=== PATIENT | female | born 1960 ===

== ENCOUNTER 2016-10-10 08:50 | Day surgery (SDC) | payer MEDICARE, MEDICAID ==
[2016-10-04 09:31] VITALS: BMI 23.8
[2016-10-10] MEDS ORDERED: Propofol 10 mg/ml Inj (20 ML) ONE (09:30)
[2016-10-10] MEDS ORDERED: Midazolam 2 MG/2 ML VIAL ONE (09:30)
[2016-10-10] MEDS ORDERED: Atropine 0.4 mg/ml Inj (1 mL) ONE (09:32)
[2016-10-10] MEDS ORDERED: ceFAZolin IV 1 gm in Dextrose 1 GM/50 ML BAG IVPB ONE (09:53)
[2016-10-10] MEDS ORDERED: Bupivacaine HCl 0.25% PF (10 ml) Inj ONE (09:54)
[2016-10-10] MEDS ORDERED: Lactated Ringer's 1,000 ML IV ONE (09:55)
[2016-10-10] MEDS ORDERED: Lidocaine 1% Inj (20ml) ONE (10:08)
[2016-10-10] MEDS ORDERED: HYDROmorphone 0.5 mg/0.5 ml ISec IVP PRN (10:48)
--- NOTE | 2016-10-10 10:54 | PCM.SURG1 ---
Surgeon's Initial Post Op Note - Surgeon's Notes Surgeon: Dr. Cano Corporate Safety Director: PGY1, Nancy [id number] Type of Anesthesia: General IV Pre-Operative Diagnosis: Cyst of right breast and left side of neck Operative Findings: small encapusaled cysts Post-Operative Diagnosis: Same Operation Performed: cyst excision of right breast and left side of neck Specimen/Specimens Removed: 1: Mass of neck. 2. superficial cyst of right breast Estimated Blood Loss: EBL {In ML}: 5 Drains Used: No Drains Post-Op Condition: Good Date of Surgery/Procedure: 10/10/16 Time of Surgery/Procedure: 10:00
[2016-10-10] MEDS ORDERED: Oxycodone/Acetaminophen 5/325 mg Tab PO ONE (12:00)
[2016-10-10 12:09] VITALS: BP 149/69; PULSE 54; RESP 18; TEMP 97; O2SAT 100
--- NOTE | 2016-10-10 19:38 | OP ---
PROCEDURE DATE: 10/10/2016 PREOPERATIVE DIAGNOSIS: Multiple skin lesions/lipomas. PROCEDURE CARRIED OUT: Excision of lesion, left neck and excision of right submammary breast tissue. SURGEON: Dr. Cano. EXPLOSIVE OPERATOR GRENADE: None. ANESTHESIOLOGIST: Ms. Bangura. TYPE OF ANESTHESIA: Local with sedation. DESCRIPTION OF PROCEDURE: A 56-year-old woman with lupus, two skin lesions noticed by the patient, ulcerated at times. OPERATIVE FINDINGS: There were both excised. This was simply in the skin. We did not go deeper. We did not go near the spinal accessory nerve to the neck. Wound was then closed in subcuticular closure *------*. OPERATION CARRIED OUT: Excision of 2 cm cysts of left neck and right breast. Dawson Cano Jr., MD
== END 2016-10-10 12:12 | disposition home or self-care (01) ==
LOC: C.SDS 08:50
PROVIDERS: ATTEND Surgery Vascular Surgery
DX: L72.0 Epidermal cyst (principal); L93.0 Discoid lupus erythematosus
CPT/HCPCS: 11402; 11422; 88305; J0690; J1885; J2001; J2250; J2405; J2704; J3010; J7120